=== PATIENT | male | born 1965 | race Hispanic/Latino ===

== ENCOUNTER 2025-03-19 10:03 | Emergency (ER) | payer OTHER ==
[~2025-03-19] VITALS: Ht 165.1 cm; Wt 84.8 kg
[2025-03-19] MEDS ORDERED: CELEBREX200 MG PO (11:58)
[2025-03-19] MEDS ORDERED: DOXAZOSIN MESYLA2 MG PO (11:58)
[2025-03-19] MEDS ORDERED: PLAQUENIL200 MG PO (11:58)
[2025-03-19 13:45] VITALS: PULSE 69; RESP 14; TEMP 98.3; O2SAT 97
== END 2025-03-19 13:45 | disposition home or self-care (01) ==
LOC: FSED 10:29
DX: R10.9 Unspecified abdominal pain (principal); R73.9 Hyperglycemia, unspecified; R35.0 Frequency of micturition; M06.9 Rheumatoid arthritis, unspecified
CPT/HCPCS: 36415; 74176; 81003; 82948; 99284